=== PATIENT | male | born 1945 | race Caucasian/White ===

== ENCOUNTER 2017-12-07 12:33 | Day surgery (SDC) | payer MEDICARE, OTHER ==
[~2017-12-07] VITALS: Ht 167.6 cm; Wt 70.2 kg
[~2017-12-07 12:33] MED LIST: COZAAR100 MG PO; DIOVAN 160MG160 MG PO; MEVACOR 20M20 MG/TAB PO; NORCO 325 MG-51 TAB PO; PRILOSEC 20MG20 MG PO; ZYLOPRIM 100MG100 MG PO
[2017-12-07 13:01] VITALS: BP 159/97; PULSE 71; TEMP 98.7
[2017-12-07] MEDS ORDERED: CALCIUM CARBON650 M2 PO (13:07)
[2017-12-07] MEDS ORDERED: CENTRUM SILVER1 CTB PO (13:07)
[2017-12-07] MEDS ORDERED: EPA FISH OIL1 SGL PO (13:07)
[2017-12-07] MEDS ORDERED: ASPIRIN 81M81 MG/TA2 PO (13:08)
[2017-12-07] MEDS ORDERED: FLOMAX 0.40.4 MG/CAP PO (13:08)
[2017-12-07] MEDS ORDERED: ZYRTEC 10MG10 MG PO (13:08)
[2017-12-07] MEDS ORDERED: ZOCOR 20MG20 MG PO (13:09)
[2017-12-07 15:10] VITALS: BP 126/74; PULSE 81; TEMP 98.1
[2017-12-07 15:25] VITALS: BP 130/71; PULSE 86
[2017-12-07 15:40] VITALS: BP 131/69; PULSE 64
== END 2017-12-07 15:55 | disposition home or self-care (01) ==
LOC: SDCO 12:33
DX: Z12.11 Encounter for screening for malignant neoplasm of colon (principal); K64.0 First degree hemorrhoids; Z79.82 Long term (current) use of aspirin; K21.9 Gastro-esophageal reflux disease without esophagitis; I10 Essential (primary) hypertension; E78.00 Pure hypercholesterolemia, unspecified; Z85.828 Personal history of other malignant neoplasm of skin
CPT/HCPCS: J2250; J3010; J7030